=== PATIENT | female | born 1970 | race Caucasian/White ===

== ENCOUNTER → 2017-09-08 | Outpatient (CLI) | payer BC | LOC: MC.RAD 14:40 | DX: Z12.31 Encounter for screening mammogram for malignant neoplasm of breast (principal) ==

== ENCOUNTER 2018-06-18 19:12 | Emergency (ER) | payer BC ==
[~2018-06-18] VITALS: Ht 152.4 cm; Wt 57.7 kg
[2018-06-18 19:26] VITALS: BP 151/73; TEMP 100.1
[2018-06-18 20:13] LABS: BASO % 0.5 % (0.0-2.0); EOS # 0.1 (0.0-0.7); GRAN # 5.1 (1.4-6.5); GRAN % 65.2 % (42.2-75.2); HEMATOCRIT 38.5 % (37.0-47.0); HEMOGLOBIN 13.5 g/dl (12.5-16.0); LYMPH # 1.5 (1.2-3.4); LYMPH % 18.6 % (20.0-51.0); MEAN CELL VOLUME 89 fl (80.0-100.0); MEAN CORPUSCULAR HEMOGLOBIN 31 pg (27.0-31.0); MEAN CORPUSCULAR HGB CONC 35 g/dl (33.0-37.0); MEAN PLATELET VOLUME 9.7 fl (7.4-10.4); MONO # 1.1 (0.1-0.6); MONO % 14.4 % (1.7-9.3); PLATELET COUNT 263 K/mm3 (130-400); RED BLOOD COUNT 4.32 M/mm3 (4.10-5.30); REDCELL DISTRIBUTION WIDTH-CV 11.1 % (11.5-14.5)
[2018-06-18] MEDS ORDERED: PROTONIX 40MG T40 MG PO (20:25)
[2018-06-18] MEDS ORDERED: CARAFATE 1GM1 G PO (20:25)
[2018-06-18] MEDS ORDERED: AMOXICILLIN 8751 TAB PO (20:25)
[2018-06-18 20:30] LABS: ALBUMIN 4.4 gm/dL (3.5-5.0); BILIRUBIN,TOTAL 0.4 mg/dL (0.0-1.0); CALCIUM 9.4 mg/dL (8.4-10.2); CREATININE, serum 0.75 mg/dL (0.52-1.25); POTASSIUM 3.6 mmol/L (3.4-5.0); TOTAL PROTEIN 8.3 gm/dL (6.4-8.2)
[2018-06-18] MEDS ORDERED: PEN-VEE K500 MG PO (21:44)
[2018-06-18 21:54] VITALS: PULSE 79
== END 2018-06-18 21:56 | disposition home or self-care (01) ==
LOC: COL.ER 19:12
PROVIDERS: Emergency Medicine
DX: J03.90 Acute tonsillitis, unspecified (principal); M02.30 Reiter's disease, unspecified site; K21.9 Gastro-esophageal reflux disease without esophagitis
CPT/HCPCS: J0696; J7040

== ENCOUNTER 2018-09-13 15:45 | Outpatient (RCR) | payer BC ==
[~2018-09-13 15:45] MED LIST: AMOXICILLIN 8751 TAB PO; CARAFATE 1GM1 G PO; PEN-VEE K500 MG PO; PROTONIX 40MG T40 MG PO
== END 2018-10-26 08:30 | disposition home or self-care (01) ==
LOC: WSPT 15:45
DX: M25.562 Pain in left knee (principal); M25.462 Effusion, left knee

== ENCOUNTER → 2018-11-11 | Outpatient (CLI) | payer BC | LOC: MC.RAD 13:43 | DX: Z12.31 Encounter for screening mammogram for malignant neoplasm of breast (principal) ==

== ENCOUNTER → 2020-04-22 | Outpatient (CLI) | payer BC | LOC: MC.RAD 10:15 | DX: Z12.31 Encounter for screening mammogram for malignant neoplasm of breast (principal) ==

== ENCOUNTER → 2022-02-12 | Outpatient (CLI) | payer BC | LOC: MC.RAD 13:15 | DX: Z12.31 Encounter for screening mammogram for malignant neoplasm of breast (principal) ==

== ENCOUNTER 2022-11-25 08:02 | Day surgery (SDC) | payer BC ==
[~2022-11-25] VITALS: Ht 160 cm; Wt 60.4 kg
[2022-11-25 08:41] VITALS: BP 114/82; PULSE 72; TEMP 97.4
[2022-11-25 09:35] VITALS: BP 104/65; PULSE 75; TEMP 97.6
--- NOTE | 2022-11-25 09:35 | NUR ---
PATIENT AMBULATED TO CHAIR WITH STANDBY ASSIST. PATIENT ALERT AND ORIENTED, DENIES PAIN AND NAUSEA. BREATHING REGULAR AND UNLABORED. NURSE HANDOFF COMPLETED IN ROOM. SEE CHART FOR VITAL SIGNS. PATIENT HAD ORANGE JUICE AND APPLESAUCE, BOTH TOLERATED WELL. PATIENT'S IN ROOM. CALL LIGHT IN REACH. MET WITH PATIENT TO DISCUSS PROCEDURE AT 0942.
[2022-11-25 09:45] VITALS: BP 105/73; PULSE 63
[2022-11-25 09:50] VITALS: BP 107/78; PULSE 82
[2022-11-25 10:00] VITALS: BP 110/78; PULSE 80
--- NOTE | 2022-11-25 10:08 | NUR ---
PATIENT DENIES PAIN AND NAUSEA. DISCHARGE TEACHING COMPLETED WITH PRINTED EDUCATION AND INSTRUCTIONS SENT HOME WITH PATIENT. PATIENT VERBALIZED UNDERSTANDING OF TEACHING. IV REMOVED. PATIENT DISCHARGED HOME WITH TRANSPORT.
== END 2022-11-25 10:05 | disposition home or self-care (01) ==
LOC: SDCO 08:02
DX: Z12.11 Encounter for screening for malignant neoplasm of colon (principal); D12.3 Benign neoplasm of transverse colon; Z86.16 Personal history of COVID-19
CPT/HCPCS: J2704; J7120